=== PATIENT | male | born 1970 | race Caucasian/White ===

== ENCOUNTER 2022-05-02 13:21 | Inpatient (IN) ==
[2022-05-02] MEDS ORDERED: VANCOMYCIN HCL 2,250 MG in SODIUM CHLORIDE 0.9% 500 ML IV STA (14:18)
[2022-05-02] MEDS ORDERED: CEFEPIME 2,000 MG/20 ML VIAL IV STA (14:18)
[2022-05-02] MEDS ORDERED: VANCOMYCIN CONSULT ACTIVE PRN (14:18)
--- NOTE | 2022-05-02 14:23 | Emergency Department Note ---
Impression & Plan Cellulitis, Anemia, Failure of outpatient treatment, Creatinine elevation ED Provider Note NAME: PEYTON MONTILLA AGE: 51 SEX: M : 1970 ARRIVES VIA: Walk-In INFORMANT: [Patient] ED PROVIDER(S): [Shiv Roa MD] CHIEF COMPLAINT: Infection HISTORY OF PRESENT ILLNESS: The patient is a 51-year-old male who has a history of a left lower extremity compartment syndrome as well as fracture. He states that 3 days ago, he noticed redness and swelling and went to an ER in [facility]. They opened the wound and drained some puslike material. He was placed on antibiotics (Keflex). He is visiting here in [place]. The patient states that he has been taking his antibiotics as prescribed however, the leg has become more erythematous and more swollen. He has not had fever. He has minimal pain. No cough or congestion or shortness of breath. No urinary complaints. He has never had an infection in this leg before. No real pain in the left knee or leg. He has been walking on this extremity. REVIEW OF SYSTEMS: See HPI for pertinent positives and negatives. A total of ten systems were reviewed and were otherwise negative. PMHx/PSHx: See Below SOCIAL HISTORY: See Below. PHYSICAL EXAM: GENERAL: Patient is in no acute distress. HEENT: No acute trauma, normocephalic atraumatic, mucous membranes moist, no nasal congestion, no scleral icterus. NECK: No stridor, no adenopathy, no meningismus, trachea is midline. LUNGS: Clear to auscultation bilaterally, no wheeze, no rhonchi, breath sounds equal. HEART: Without murmurs gallops or rubs, regular rate and rhythm. ABDOMEN: Soft, nontender, bowel sounds positive, no peritonitis. EXTREMITIES: No cyanosis. Significant swelling/edema of the left lower extremity from the knee to the ankle. There is erythema extending above the knee and to the ankle. There is an open area with packing in place along the proximal lateral portion of the tib-fib. No active drainage. NEUROLOGIC: Oriented x 3, no acute motor or sensory deficits, no focal weakness. SKIN: No jaundice, no diaphoresis. DIFFERENTIAL DIAGNOSIS: Sepsis, abscess, necrotizing fasciitis, UTI, pneumonia, metabolic abnormality, electrolyte abnormalities, cardiac sources, cellulitis, bacteremia, intracerebral event, toxicologic etiology, neurologic event, as well as other pathologies. EMERGENCY DEPARTMENT COURSE/PROCEDURES: ECG: Indication was possible sepsis. The ECG shows a normal sinus rhythm with a rate of 78. LVH is present. There is no ST elevation, no PVCs but the QTc is 424. Continuous Cardiac Monitoring: An order was placed for continuous cardiac monitoring. The monitor shows a rate of 84 with normal sinus rhythm. MEDICAL DECISION MAKING: There is no leukocytosis. The patient is anemic--we have no old values to use for comparison. The patient has not had black or bloody stool. The patient has no history of GI bleeding. Platelet count was 185, normal. No concerning coagulopathy. Renal panel testing does show an elevation to the creatinine, the patient has no knowledge of his previous creatinine values. We have no values here to use for comparison. Lactic acid level was not elevated making severe sepsis less likely. There was no concerning liver enzyme elevation. Procalcitonin level was elevated consistent with bacterial infection. Left lower extremity CT does show cellulitis, no evidence for necrotizing fasciitis. Our receptionist secretary did attempt to obtain information from the patient's medical facility in [facility], they were unable to provide any information as it was the weekend. I do think the patient requires a hospital stay. He has worsening infection despite antibiotic therapy. The patient was given IV saline, IV cefepime and IV vancomycin. The patient is currently doing well. Hospitalization is warranted though. I spoke with the patient at length, I spoke with case management, the on-call hospitalist was consulted. Past Med/Surg History Medical History Cellulitis Compartment syndrome Social History Smoking Status: Never smoker Preferred Language: [place] Korean Feels Safe at Home: Yes Results & Data (ED) Vital Signs Vital Signs - 24 hr 05/02/22 13:22 05/02/22 15:07 05/02/22 18:29 Temperature 37.0 C Temperature Source Oral Pulse Rate 91 H Pulse Rate [Finger] 84 86 Respiratory Rate 16 18 16 Respiratory Effort / Characteristics Non-Labored Respiratory Depth Normal Blood Pressure 149/92 H Blood Pressure [Right Arm] 119/75 175/95 H Blood Pressure Mean 111 Blood Pressure Mean [Right Arm] 89 121 Pulse Oximetry 98 97 97 Oxygen Delivery Method Room Air Room Air Sepsis Recent Fever Within 48 Hours No Sepsis New/Unexplained Change in Mental Status No Sepsis Action Taken by Nursing No Action Required Home Medications Current Medication List: was personally reviewed by me Laboratory Data Attestation: I reviewed the patient's lab results. Result diagrams: 05/02/22 13:45 05/02/22 13:45 Lab Results 05/02/22 05/02/22 05/02/22 Range/Units 13:45 13:45 13:45 WBC 9.35 (4.8-10.8) K/ul RBC 4.54 L (4.63-6.08) M/uL Hgb 9.9 L (14.0-18.0) g/dl Hct 32.9 L (40.1-51.0) % MCV 72.5 L (80.0-100.0) fL MCH 21.8 L (25.0-34.0) pg MCHC 30.1 L (32.0-36.0) g/dL RDW Std Deviation 48.1 H (36.4-46.3) fL RDW Coeff of Dalton 18.5 H (11.5-14.5) % Plt Count 185 (130-400) K/uL MPV 11.2 (9.4-12.4) fL Immature Gran % (Auto) 0.6 % Neut % (Auto) 77.4 % Lymph % (Auto) 10.6 % Orange % (Auto) 9.5 % Eos % (Auto) 1.7 % Baso % (Auto) 0.2 % Neut # (Auto) 7.23 H (1.4-6.5) K/uL Lymph # (Auto) 0.99 L (1.2-3.4) K/uL Orange # (Auto) 0.89 H (0.24-0.82) K/uL Eos # (Auto) 0.16 (0-0.50) K/uL Baso # (Auto) 0.02 (0-0.2) K/uL Immature Gran # (Auto) 0.06 H (0.00-0.02) K/uL Dohle Bodies 1+ Echinocytes 1+ PT 11.5 (9.0-12.0) Seconds INR 1.1 (0.9-1.1) APTT 35.1 H (21.0-31.0) Seconds PTT Ratio 1.3 Sodium 137 (136-145) mmol/L Potassium 3.5 (3.5-5.1) mmol/L Chloride 103 (98-107) mmol/L Carbon Dioxide 21 (21-32) mmol/L Anion Gap 13 H (3-11) BUN 55 H (6-23) mg/dl Creatinine 2.70 H (0.6-1.4) mg/dl Est Cr Clr Drug Dosing 36.4 ml/min Est GFR ( Amer) 29.8 ml/min Est GFR (Non-Af Amer) 25.7 ml/min BUN/Creatinine Ratio 20.4 H (10-20) Glucose 103 H (70-99(Fasting)) mg/dl Lactate (0.4-2.0) mmol/L Calcium 9.7 (8.5-10.1) mg/dl Magnesium 2.2 (1.7-2.4) mg/dl Total Bilirubin 0.5 (0.2-1.0) mg/dl AST 32 (13-39) U/L ALT 35 (7-52) U/L Alkaline Phosphatase 95 (34-104) U/L Total Protein 7.8 (6.0-8.3) gm/dl Albumin 4.1 (3.4-5.0) gm/dl Globulin 3.7 (2.5-4.0) gm/dl Albumin/Globulin Ratio 1.1 (0.9-2) Procalcitonin (0-0.5) ng/ml 05/02/22 05/02/22 Range/Units 13:45 14:41 WBC (4.8-10.8) K/ul RBC (4.63-6.08) M/uL Hgb (14.0-18.0) g/dl Hct (40.1-51.0) % MCV (80.0-100.0) fL MCH (25.0-34.0) pg MCHC (32.0-36.0) g/dL RDW Std Deviation (36.4-46.3) fL RDW Coeff of Dalton (11.5-14.5) % Plt Count (130-400) K/uL MPV (9.4-12.4) fL Immature Gran % (Auto) % Neut % (Auto) % Lymph % (Auto) % Orange % (Auto) % Eos % (Auto) % Baso % (Auto) % Neut # (Auto) (1.4-6.5) K/uL Lymph # (Auto) (1.2-3.4) K/uL Orange # (Auto) (0.24-0.82) K/uL Eos # (Auto) (0-0.50) K/uL Baso # (Auto) (0-0.2) K/uL Immature Gran # (Auto) (0.00-0.02) K/uL Dohle Bodies Echinocytes PT (9.0-12.0) Seconds INR (0.9-1.1) APTT (21.0-31.0) Seconds PTT Ratio Sodium (136-145) mmol/L Potassium (3.5-5.1) mmol/L Chloride (98-107) mmol/L Carbon Dioxide (21-32) mmol/L Anion Gap (3-11) BUN (6-23) mg/dl Creatinine (0.6-1.4) mg/dl Est Cr Clr Drug Dosing ml/min Est GFR ( Amer) ml/min Est GFR (Non-Af Amer) ml/min BUN/Creatinine Ratio (10-20) Glucose (70-99(Fasting)) mg/dl Lactate 0.9 (0.4-2.0) mmol/L Calcium (8.5-10.1) mg/dl Magnesium (1.7-2.4) mg/dl Total Bilirubin (0.2-1.0) mg/dl AST (13-39) U/L ALT (7-52) U/L Alkaline Phosphatase (34-104) U/L Total Protein (6.0-8.3) gm/dl Albumin (3.4-5.0) gm/dl Globulin (2.5-4.0) gm/dl Albumin/Globulin Ratio (0.9-2) Procalcitonin 3.59 H (0-0.5) ng/ml Administered Medications Discontinued Medications Vancomycin HCl 2,250 mg/ (Sodium Chloride) 545 mls @ 200 mls/hr IV NOW STA Stop: 05/02/22 17:01 Last Admin: 05/02/22 16:16 Dose: 200 mls/hr Documented By: ROBE Sodium Chloride (Nss 1000ml) 1,000 mls @ 999 mls/hr IV .Q1H1M ANGELA Stop: 05/02/22 15:30 Last Infusion: 05/02/22 16:16 Dose: 0 mls/hr Documented By: Admin: 05/02/22 15:08 Dose: 999 mls/hr Documented By: ROBE Cefepime HCl (Maxipime) 2,000 mg in 20 mls @ 5 mls/min IV NOW STA; Protocol Stop: 05/02/22 14:21 Last Admin: 05/02/22 15:08 Dose: 5 mls/min Documented By: ROBE Imaging Data Radiologist's Impression: Lower Extremity CT 05/02/22 15:41 CT tib/fib LT wo con CLINICAL HISTORY: Possible abscess, elevated creatinine. Recent incision and drainage. COMPARISON STUDY: No previous studies for comparison. TECHNIQUE: Axial images of the left tibia and fibula were obtained without IV contrast. Sagittal and coronal reconstructions were viewed. Automated exposure control was utilized for the study. A dose lowering technique was utilized adhering to the principles of ALARA. FINDINGS: A proximal left tibial plate and screw fixation is noted. There is an incompletely healed proximal left tibial fracture which involves the medial and lateral tibial plateaus. Evaluation is suboptimal given streak artifact from the hardware. Lateral tibial plateau is depressed approximately 6 mm. Hardware is intact. There is an incompletely healed proximal left fibular fracture as well. Visualized skeletal structures are heterogeneous with numerous lucent foci. The findings suggest disuse osteopenia. A left knee joint effusion is partially imaged. This is at least moderate in size. There is suspected synovial thickening. There is extensive subcutaneous edema of the left knee and lower leg. A few locules of subcutaneous gas of the lateral left knee are likely related to recent incision and drainage. The largest locule measures 1.2 cm. This may have a small amount of associated fluid. However, no drainable fluid collection is noted. No additional fractures are identified. IMPRESSION: 1. Status post internal fixation of a proximal left tibial fracture with plate and screws. Fracture incompletely healed. Fracture involves medial and lateral tibial plateaus. Lateral tibial plateau depressed approximately 6 mm. Incompletely healed proximal fibular fracture. 2. Partially visualized left knee joint effusion, likely moderate in size. Synovial thickening. Sterility cannot be assessed by CT. 3. Several subcutaneous locules of gas of the lateral left knee likely related to recent incision and drainage. No drainable residual fluid collection. 4. Extensive subcutaneous edema of the left knee and leg. This favors cellulitis. 5. Findings suggestive of disuse osteopenia. ACT 112: Negative or not required by law. Electronically signed by: Bruce Marley M.D. 05/02/2022 5:40 PM Discharge Plan Visit Data Chief Complaint: Infection Stated Complaint: LEG INFECTION ED Provider: Shiv Roa Discharge Problem: Cellulitis, Anemia, Failure of outpatient treatment, Creatinine elevation Patient Disposition: Admitted As Inpatient Condition: Fair Forms Stand Alone Forms: [facility] Referrals Referrals: PCP,NO [Primary Care Provider] -
[2022-05-02] MEDS ORDERED: SODIUM CHLORIDE 0.9% 1000ML 1,000 ML IV SCH (14:30)
[2022-05-02 14:43] LABS: Hematocrit (blood only) 32.9 % (40.1-51.0); Hemoglobin 9.9 g/dl (14.0-18.0); Mean Corpuscular Hemoglobin 21.8 pg (25.0-34.0); Mean Corpuscular Hgb Conc 30.1 g/dL (32.0-36.0); Mean Corpuscular Volume 72.5 fL (80.0-100.0); RDW Coefficient of Variation 18.5 % (11.5-14.5); RDW Standard Deviation 48.1 fL (36.4-46.3); Red Blood Count 4.54 M/uL (4.63-6.08); White Blood Count 9.35 K/ul (4.8-10.8)
[2022-05-02 14:46] LABS: Mean Platelet Volume 11.2 fL (9.4-12.4); Platelet Count 185 K/uL (130-400)
[2022-05-02 14:54] LABS: Albumin Globulin Ratio 1.1 (0.9-2); Albumin Level 4.1 gm/dl (3.4-5.0); BUN Creatinine Ratio 20.4 (10-20); Bilirubin,Total 0.5 mg/dl (0.2-1.0); Calcium 9.7 mg/dl (8.5-10.1); Creatinine Clr Calc Pharmacy 36.4 ml/min; Est GFR (African American) 29.8 ml/min; Est GFR (Non-African American) 25.7 ml/min; Globulin 3.7 gm/dl (2.5-4.0); Magnesium 2.2 mg/dl (1.7-2.4); Potassium 3.5 mmol/L (3.5-5.1); Total Protein 7.8 gm/dl (6.0-8.3)
[2022-05-02 14:56] LABS: INR 1.1 (0.9-1.1); Partial Thromboplastin Ratio 1.3; Partial Thromboplastin Time 35.1 Seconds (21.0-31.0); Prothrombin Time 11.5 Seconds (9.0-12.0)
[2022-05-02 15:02] LABS: Basophils # (auto) 0.02 K/uL (0-0.2); Basophils % (auto) 0.2 %; Dohle Bodies 1+; Echinocytes 1+; Eosinophils # (auto) 0.16 K/uL (0-0.50); Eosinophils % (auto) 1.7 %; Immature Granulocytes # (auto) 0.06 K/uL (0.00-0.02); Immature Granulocytes % (auto) 0.6 %; Lymphocytes # (auto) 0.99 K/uL (1.2-3.4); Lymphocytes % (auto) 10.6 %; Monocytes # (auto) 0.89 K/uL (0.24-0.82); Monocytes % (auto) 9.5 %; Neutrophils # (auto) 7.23 K/uL (1.4-6.5); Neutrophils % (auto) 77.4 %
--- NOTE | 2022-05-02 17:43 | CT Scan Report ---
CT tib/fib LT wo con CLINICAL HISTORY: Possible abscess, elevated creatinine. Recent incision and drainage. COMPARISON STUDY: No previous studies for comparison. TECHNIQUE: Axial images of the left tibia and fibula were obtained without IV contrast. Sagittal and coronal reconstructions were viewed. Automated exposure control was utilized for the study. A dose l owering technique was utilized adhering to the principles of ALARA. FINDINGS: A proximal left tibial plate and screw fixation is noted. There is an incompletely healed p roximal left tibial fracture which involves the medial and lateral tibial plateaus. Evaluation is sub optimal given streak artifact from the hardware. Lateral tibial plateau is depressed approximately 6 mm. Hardware is intact. There is an incompletely healed proximal left fibular fracture as well. Visua lized skeletal structures are heterogeneous with numerous lucent foci. The findings suggest disuse os teopenia. A left knee joint effusion is partially imaged. This is at least moderate in size. There is suspected synovial thickening. There is extensive subcutaneous edema of the left knee and lower leg. A few locules of subcutaneous gas of the lateral left knee are likely related to recent incision and drainage. The largest locule measures 1.2 cm. This may have a small amount of associated fluid. [place], no drainable fluid collection is noted. No additional fractures are identified. IMPRESSION: 1. Status post internal fixation of a proximal left tibial fracture with plate and screws. Fracture i ncompletely healed. Fracture involves medial and lateral tibial plateaus. Lateral tibial plateau depr essed approximately 6 mm. Incompletely healed proximal fibular fracture. 2. Partially visualized left knee joint effusion, likely moderate in size. Synovial thickening. Steri lity cannot be assessed by CT. 3. Several subcutaneous locules of gas of the lateral left knee likely related to recent incision and drainage. No drainable residual fluid collection. 4. Extensive subcutaneous edema of the left knee and leg. This favors cellulitis. 5. Findings suggestive of disuse osteopenia. ACT 112: Negative or not required by law. Electronically signed by: Bruce Marley M.D. 05/02/2022 5:40 PM
--- NOTE | 2022-05-02 19:17 | History & Physical Report ---
Date of Service May 02, 2022 Assessment & Plan (1) Cellulitis: Plan: Failed outpatient Keflex. After reviewing images and clinical exam, I do not think the knee is involved, so I think it is ok to keep him here. - Follow blood cultures - Ordered abscess culture - Doppler on LLE ordered - extension division director consult - Dapto/Zosyn until cultures return - Orthopedics consulted (2) Tibial plateau fracture, left: Plan: On 12/07/2021 when falling from a ladder. As above, do not believe joint is involved based on exam and imaging. - Orthopedics consult just to be sure and to see if they feel any further I&D would be warranted. (3) Creatinine elevation: Plan: Patient does not have any knowledge of prior kidney issues, so presumed acute renal failure. - UA ordered - IV fluids - Bladder scans to r/o obstructive cause - If not improvement in next 1-2 days, consider nephrology c/s (4) Anemia: Plan: Microcytic, presumed to be iron deficiency from surgeries. Patient does not know of this, however. No indication of acute bleeding. - Anemia panel - Monitor - Consider IV Venofer when infection controlled (5) Migraine: Plan: Take sumatriptan at home. - Sumatriptan PRN (6) DVT prophylaxis: Plan: Heparin 5,000 units SQ Q12h History of Present Illness Primary Care Provider: NO PCP 51yo M w/ hx of migraines who presents with left leg cellulitis. The patient fell off a ladder on 12/07/2021. He went straight the hospital, and was diagnosed with a tibial plateau fracture. His case was complicated by compartment syndrome of the wells, and he required a fasciotomy. Overall, he required 4 surgeries to repair the leg and had his final surgery to stabilize and repair the bone on 12/29/2021. Unfortunately, at some point, he scraped at some scabbing on the lateral side of the leg, and he opened up a blister. He has been using gauze and bandages on the leg to help it heal. He was in [place] when he noted some redness and swelling on the leg. There, he had an I&D performed at a hospital, and they prescribed him Keflex. He has been taking that as prescribed. However, today, one of his coworkers noted that he had blood staining through his pant. Someone in the stadium packed the wound, and he was sent here for further care. He reports he has not had any systemic symptoms overall. He notes his leg is swollen, but no pain. Has had very limited ROM with the left knee since his surgeries, but this has not changed. Home Medications Medication Instructions Recorded Confirmed Type sumatriptan 05/02/22 History Past Med/Surg History Medical History Cellulitis Compartment syndrome Migraine Tibial plateau fracture, left Social History Smoking Status: Never smoker Preferred Language: Venezuelan Feels Safe at Home: Yes Review of Systems Review of Systems: All systems reviewed & are unremarkable except as noted in HPI & below Physical Exam Constitutional: WD/WN, vitals as above Eyes: EOM intact bilaterally; no conjunctival abnormality ENMT: external ear and nose normal, oropharynx normal Neck: trachea midline, no thyromegaly normal visual inspection Respiratory: normal respiratory effort, lungs clear to auscultation no respiratory distress Cardiovascular: RRR, no murmur, no edema Gastrointestinal (Abdomen): Inspection/Auscultation: abdomen normal to inspection; abdomen not distended Musculoskeletal: Extremities: + limited ROM of extremities (Left knee with minimal range of motion); + extremities abnormal to inspection Skin: no rashes, warm and dry Neurologic: moves all extremities and awake Psychiatric: Orientation: alert, oriented to person and cooperative Results & Data Results & Data ([facility]) Vital Signs (Past 12 Hours) Vital Signs Temp Pulse Pulse Resp BP BP Pulse Ox 05/02/22 18:29 86 16 175/95 H 97 05/02/22 15:07 84 18 119/75 97 05/02/22 13:22 37.0 C 91 H 16 149/92 H 98 O2 Del Method 05/02/22 18:29 Room Air 05/02/22 15:07 Room Air 05/02/22 13:22 Code Status & VTE Plan VTE Prophylaxis Plan VTE Prophylaxis will be ordered: Yes PG Care Time/CCT Total # of Minutes Spent Total Time Spent with Patient: Total time spent is greater than 50% in coordination of care (as documented) at patient's floor/unit and/or counseling patient: Coding Level of Care Code 54287 Initial Inpt Care Lvl 3 Diagnoses Cellulitis L03.116 Laterality: left Site of cellulitis: extremity Site of cellulitis of extremity: lower extremity Tibial plateau fracture, left S82.142A Creatinine elevation R79.89 Anemia D64.9 Anemia type: unspecified type Migraine G43.909 DVT prophylaxis Z29.9 (1) Cellulitis Laterality: left Site of cellulitis: extremity Site of cellulitis of extremity: lower extremity Qualified Code(s): L03.116 - Cellulitis of left lower limb (2) Anemia Anemia type: unspecified type Qualified Code(s): D64.9 - Anemia, unspecified
[2022-05-02] MEDS ORDERED: ONDANSETRON INJ 2 MG/ML 2 ML VIAL IV PRN (21:37)
[2022-05-02] MEDS: HEPARIN SOD 5,000 UNIT/0.5 ML VIAL SQ SCH (21:51)
[2022-05-02] MEDS ORDERED: PIPERACILLIN/TAZOBACTAM 3.375 GM in DEXTROSE 5% 100 ML IV ONE (22:00)
[2022-05-02 22:16] LABS: Appearance Urine Clear (Clear); Bacteria Urine Automated Negative (Negative); Bilirubin Urine Negative (Negative); Blood Urine 1+ (Negative); Color Urine Yellow; Epithelial Cell Urine Auto >30 /lpf (0-5); Glucose Urine UA Negative (Negative); Ketones Urine Negative (Negative); Leukocyte Esterase Urine Negative (Negative); Nitrite Urine Negative (Negative); Protein Urine 2+ (Negative); Specific Gravity Urine 1.019 (1.000-1.030); Urobilinogen Urine Negative (Negative); pH Urine 5.5 (4.5-7.5)
[2022-05-02] MEDS: LACTATED RINGER'S 1,000 ML IV SCH (22:16)
[2022-05-02] MEDS ORDERED: IBUPROFEN 600 MG TAB PO PRN (22:41)
[2022-05-03] MEDS: DAPTOmycin 325 MG in SYRINGE 0 ML IV SCH (02:58)
[2022-05-03] MEDS: PIPERACILLIN/TAZOBACTAM 3.375 GM in DEXTROSE 5% 100 ML IV SCH ×3 (03:02→19:24)
[2022-05-03 08:10] LABS: Hematocrit (blood only) 27.5 % (40.1-51.0); Hemoglobin 8.4 g/dl (14.0-18.0); Mean Corpuscular Hemoglobin 21.6 pg (25.0-34.0); Mean Corpuscular Hgb Conc 30.5 g/dL (32.0-36.0); Mean Corpuscular Volume 70.7 fL (80.0-100.0); Mean Platelet Volume 9.8 fL (9.4-12.4); Platelet Count 161 K/uL (130-400); RDW Coefficient of Variation 18.4 % (11.5-14.5); RDW Standard Deviation 46.6 fL (36.4-46.3); Red Blood Count 3.89 M/uL (4.63-6.08); White Blood Count 8.32 K/ul (4.8-10.8)
--- NOTE | 2022-05-03 08:23 | Ultrasound Report ---
LEFT LOWER EXTREMITY VENOUS DOPPLER CLINICAL HISTORY: Severe LE swelling; immobility COMPARISON STUDY: No previous studies for comparison. TECHNIQUE: Sonography of the deep venous system of the left lower extremity was performed. Compressi on and augmentation were evaluated. FINDINGS: The left common femoral, superficial femoral and popliteal veins were compressible. Augmen tation was normal. Flow was shown within the deep calf vessels although the calf vessels were difficu lt to assess. Prominent left inguinal lymph nodes have benign imaging characteristics. Extensive left calf edema is noted.. IMPRESSION: 1. No evidence of deep venous thrombus within the left lower extremity although left calf vessels sub optimally assessed. 2. Extensive left calf fluid. This may reflect cellulitis or edema. ACT 112: Negative or not required by law. Electronically signed by: Bruce Marley M.D. 05/03/2022 8:22 AM
[2022-05-03 08:51] LABS: Anion Gap 10 (3-11); BUN Creatinine Ratio 22.7 (10-20); Blood Urea Nitrogen 29 mg/dl (6-23); Calcium 8.6 mg/dl (8.5-10.1); Carbon Dioxide 22 mmol/L (21-32); Chloride 106 mmol/L (98-107); Creatinine Clr Calc Pharmacy 76.4 ml/min; Est GFR (African American) 73.6 ml/min; Est GFR (Non-African American) 63.5 ml/min; Glucose 88 mg/dl (70-99(Fasting)); Iron < 10 mcg/dl (35-175); Magnesium 1.8 mg/dl (1.7-2.4); Potassium 3.3 mmol/L (3.5-5.1); Sodium 138 mmol/L (136-145); Transferrin 186 mg/dl (200-360); Unsaturated Iron Binding Cap 239 mcg/dl (155-355)
[2022-05-03 09:00] LABS: Folate (Folic Acid) 17.46 ng/ml (>5.38)
[2022-05-03 09:24] LABS: Ferritin 112.1 ng/ml (8-388)
[2022-05-03] MEDS: HEPARIN SOD 5,000 UNIT/0.5 ML VIAL SQ SCH ×2 (10:26→22:26)
[2022-05-03] MEDS: LACTATED RINGER'S 1,000 ML IV SCH ×2 (10:26→22:21)
--- NOTE | 2022-05-03 14:59 | Electrocardiogram Report ---
Test Reason : Blood Pressure : / mmHG Vent. Rate : 078 BPM Atrial Rate : 078 BPM P-R Int : 134 ms QRS Dur : 098 ms QT Int : 372 ms P-R-T Axes : 062 003 027 degrees QTc Int : 424 ms Normal sinus rhythm Possible Left atrial enlargement Left ventricular hypertrophy Abnormal ECG No previous ECGs available Confirmed by Catarino Joshi ([id number]) on 05/03/2022 2:58:47 PM Referred By: REFERRED SELF Confirmed By:Catarino Joshi
--- NOTE | 2022-05-03 15:35 | Orthopedic Consultation ---
Date of Service May 03, 2022 Assessment & Plan (1) Infected hardware in left leg: Unfortunately unable to easily express gross pus from the wound. I feel this is treated better in the operating room with formal irrigation and debridement of the area. I do not see any signs of septic arthritis in the knee joint. He is not having much pain in the knee. After the irrigation debridement I will likely apply a VAC sponge. He will then likely require IV antibiotics and can be sent back to [place]. I went over the procedure with him in detail. He had just eaten today so I think this can be safely done tomorrow. He understands the risk, benefits, alternatives procedure elected proceed question were a nswered at bedside. Time was spent describing the procedure and post expectations. He will be n.p.o. past midnight tonight. History of Present Illness Reason for Consultation: Left leg infection. Requesting Physician: . Attending Physician: Jon Junior is a pleasant 51-year-old male who lives in [place]. He was in [place] [employer] the [employer] game. He has a history of an open reduction internal fixation of his right tibial plateau about 6 months ago. He required a fasciotomy at the time as well. Once the soft tissues had calmed down he underwent the fixation. He has been dealing with some cellulitis to the area on and off. The wounds were slowly closing. While at the [employer] game one of the wounds opened up. He came to the emergency room and was diagnosed with cell ulitis and infection around the left proximal tibia. CT scan showed a small abscess area but nothing too significant. The hardware is intact with the fracture is not yet healed. He has been admitted to the medical service and is on IV antibiotics. Orthopedics was consulted to evaluate and treat.. Allergies Allergy/AdvReac Type Severity Reaction Status Date / Time No Known Allergies Allergy Unverified 05/02/22 19:45 Home Medications Medication Instructions Recorded Confirmed Type cephalexin 500 mg capsule 500 mg PO TID 05/02/22 05/02/22 History glucosamine sulf dipot 2 cap PO DAILY 05/02/22 05/02/22 History chlr,msm,chond 550 mg-C 30 mg-chelle 1 mg capsule (Glucosamine Chondroitin) hydrocodone 5 mg-acetaminophen 325 1 tab PO Q6H PRN Pain 05/02/22 05/02/22 History mg tablet ibuprofen 200 mg tablet 600 mg PO Q6H PRN Pain 05/02/22 05/02/22 History sumatriptan succinate 50 mg tablet 0 mg PO .COMPLEX 05/02/22 05/02/22 History Past Med/Surg History Medical History Cellulitis Compartment syndrome Migraine Tibial plateau fracture, left Social History Smoking Status: Never smoker Second Hand Exposure: No; Hx Alcohol Use: Yes Alcohol type: beer and hard liquor Hx Substance Use: No Preferred Language: Azerbaijani Communication Ability: Effective Press Department Manager Required: No Beliefs That Will Affect Care: None Current Living Situation: Spouse and Family Current Living Situation Comment: Lives w/ spouse and family Feels Safe at Home: Yes Assistive Devices: Cane and Glasses Review of Systems All systems reviewed & are unremarkable except as noted in HPI & below. Physical Exam On physical examination of the left leg, there is cellulitis extends from the knee down to the ankle. There is a 1 cm opening around the proximal tibia with purulent discharge easily expressed from it.. Constitutional WD/WN, vitals as above Eyes PERRL, conjunctivae normal, anicteric sclerae ENMT external ear and nose normal, oropharynx normal Neck trachea midline, no thyromegaly Respiratory normal respiratory effort, lungs clear to auscultation Cardiovascular RRR, no murmur, no edema Gastrointestinal (Abdomen) normal bowel sounds, soft, nontender, no hepatosplenomegaly Skin no rashes, warm and dry Psychiatric A+Ox3, euthymic affect Results & Data Results & Data Laboratory Results . Diagnostic Findings CT scan of the left leg shows the hardware to be in good alignment. The fracture is not completely healed. There is no discernible drainable area.. PG Care Time/CCT Total # of Minutes Spent Total Time Spent with Patient: Total time spent is greater than 50% in coordination of care (as documented) at patient's floor/unit and/or counseling patient: Coding Level of Care Code 70919 Inpt Consult Level 4 (57 - DECISION FOR SURGERY) Diagnoses Infected hardware in left leg T84.7XXA
[2022-05-03] MEDS: ACETAMINOPHEN 325 MG TAB PO PRN ×2 (15:59→22:25)
[2022-05-03] MEDS: SUMAtriptan succinate 50 MG TAB PO PRN (17:52)
--- NOTE | 2022-05-03 22:18 | Hospitalist Progress Note ---
Date of Service May 03, 2022 Assessment & Plan (1) Cellulitis: Plan: Failed outpatient Keflex. After reviewing images and clinical exam, I do not think the knee is involved, so I think it is ok to keep him here. - Follow blood cultures - Ordered abscess culture - Doppler on LLE ordered - broth setter consult - Dapto/Zosyn until cultures return - Orthopedics consulted Plan for debridement and irrigation tomorrow. (2) Tibial plateau fracture, left: Plan: On 12/07/2021 when falling from a ladder. As above, do not believe joint is involved based on exam and imaging. - Orthopedics consult just to be sure and to see if they feel any further I&D would be warranted. (3) Creatinine elevation: Plan: Patient does not have any knowledge of prior kidney issues, so presumed acute renal failure. - UA ordered - IV fluids - Bladder scans to r/o obstructive cause - If not improvement in next 1-2 days, consider nephrology c/s (4) Anemia: Plan: Microcytic, presumed to be iron deficiency from surgeries. Patient does not know of this, however. No indication of acute bleeding. - Anemia panel - Monitor - Consider IV Venofer when infection controlled. -will likely not order iron in the short term. (5) Migraine: Plan: Take sumatriptan at home. - Sumatriptan PRN (6) DVT prophylaxis: Plan: Heparin 5,000 units SQ Q12h Admission and Anticipated Discharge Date Admission Date: May 02, 2022 Subjective 51 yo male reports no new symptoms. He is concerned about his blood count and would like for it to be investigated. Review of Systems Review of Systems: All systems reviewed & are unremarkable except as noted in HPI & below Physical Exam Physical Exam: Constitutional: WD/WN, vitals as above Eyes: no conjunctival abnormality ENMT: external ear and nose normal Neck: normal visual inspection Respiratory: normal respiratory effort, no respiratory distress Cardiovascular: RRR, no murmur, no edema Musculoskeletal: Extremities: + limited ROM of extremities (Left knee with minimal range of motion); + extremities abnormal to inspection Skin: no rashes, warm and dry Neurologic: moves all extremities and awake Psychiatric: Orientation: alert, oriented to person and cooperative Results & Data Results & Data ([facility]) Vital Signs (Past 12 Hours) Vital Signs Temp Pulse Pulse Resp BP Pulse Ox O2 Del Method 05/03/22 16:00 95 H 05/03/22 16:02 37.7 C H 97 H 18 141/83 H 98 Room Air PG Care Time/CCT Total # of Minutes Spent Total Time Spent with Patient: Total time spent is greater than 50% in coordination of care (as documented) at patient's floor/unit and/or counseling patient: Coding Level of Care Code 39232 Subseq Hosp Care Lvl 2 Diagnoses Cellulitis L03.116 Laterality: left Site of cellulitis: extremity Site of cellulitis of extremity: lower extremity Tibial plateau fracture, left S82.142A Creatinine elevation R79.89 Anemia D64.9 Anemia type: unspecified type Migraine G43.909 DVT prophylaxis Z29.9 Time Spent (min) 25 (1) Anemia Anemia type: unspecified type Qualified Code(s): D64.9 - Anemia, unspecified (2) Cellulitis Laterality: left Site of cellulitis: extremity Site of cellulitis of extremity: lower extremity Qualified Code(s): L03.116 - Cellulitis of left lower limb
[2022-05-04] MEDS: DAPTOmycin 325 MG in SYRINGE 0 ML IV SCH (02:58)
[2022-05-04] MEDS: PIPERACILLIN/TAZOBACTAM 3.375 GM in DEXTROSE 5% 100 ML IV SCH ×3 (03:02→19:42)
[2022-05-04] MEDS: ACETAMINOPHEN 325 MG TAB PO PRN (07:44)
[2022-05-04 08:50] LABS: Hematocrit (blood only) 26.4 % (40.1-51.0); Hemoglobin 8.1 g/dl (14.0-18.0); Mean Corpuscular Hemoglobin 21.6 pg (25.0-34.0); Mean Corpuscular Hgb Conc 30.7 g/dL (32.0-36.0); Mean Corpuscular Volume 70.4 fL (80.0-100.0); Mean Platelet Volume 10.7 fL (9.4-12.4); Platelet Count 191 K/uL (130-400); RDW Coefficient of Variation 18.6 % (11.5-14.5); RDW Standard Deviation 47.3 fL (36.4-46.3); Red Blood Count 3.75 M/uL (4.63-6.08); White Blood Count 8.21 K/ul (4.8-10.8)
[2022-05-04 09:18] LABS: BUN Creatinine Ratio 19.2 (10-20); Calcium 8.7 mg/dl (8.5-10.1); Creatinine Clr Calc Pharmacy 98.8 ml/min; Est GFR (African American) 100.4 ml/min; Est GFR (Non-African American) 86.6 ml/min; Potassium 3.4 mmol/L (3.5-5.1)
[2022-05-04] MEDS: HEPARIN SOD 5,000 UNIT/0.5 ML VIAL SQ SCH ×2 (09:52→21:17)
[2022-05-04] MEDS: SUMAtriptan succinate 50 MG TAB PO PRN (10:08)
[2022-05-04] MEDS: LACTATED RINGER'S 1,000 ML IV SCH ×2 (10:59→22:54)
[2022-05-04] MEDS ORDERED: LIDOCAINE 2% MPF LOCAL 5 ML VIAL INFIL ONE (12:40)
[2022-05-04] MEDS ORDERED: fentaNYL citrate 100 MCG/2 ML VIAL ONE ×2 (12:40→16:09)
[2022-05-04] MEDS ORDERED: ePHEDrine sulfate 50 MG/ML SYR ONE (12:40)
[2022-05-04] MEDS ORDERED: ONDANSETRON INJ 2 MG/ML 2 ML VIAL ONE (12:40)
[2022-05-04] MEDS ORDERED: PROPOFOL IV EMULSION 10 MG/ML 20 ML VIAL IV ONE (12:40)
[2022-05-04] MEDS ORDERED: MIDAZOLAM HCL 1 MG/ML 2ML VIAL ONE (12:40)
[2022-05-04] MEDS ORDERED: DEXAMETHASONE SOD INJ 4 MG/ML VIAL ONE (12:40)
--- NOTE | 2022-05-04 13:47 | History & Physical Bridge Note ---
Date of Service May 04, 2022 History & Physical Bridge Note I have examined the patient, reviewed the History & Physical and in the interval since the performance of the History & Physical I have noted the following changes of clinical significance: no changes noted
[2022-05-04] MEDS ORDERED: ATROPINE SULFATE 0.1 MG/ML 10ML SYR IV PRN (15:29)
[2022-05-04] MEDS ORDERED: ePHEDrine sulfate 50 MG/ML AMP IV PRN (15:29)
[2022-05-04] MEDS ORDERED: fentaNYL citrate 100 MCG/2 ML VIAL IV PRN (15:29)
[2022-05-04] MEDS ORDERED: ONDANSETRON INJ 2 MG/ML 2 ML VIAL IV PRN (15:29)
--- NOTE | 2022-05-04 15:29 | Anesthesiology Consultation ---
Date of Service May 04, 2022 Assessment & Plan Chart Review Chart Review: Acceptable Risk for Surgery and Patient NOT seen in Pre Admission Testing Consults Requested none ASA ASA3 Proposed Anesthesia Anesthesia Type: General Risk / Benefits Reviewed With: PT / POA / Parent / Guardian, Accepts Plan and Informed Consent Obtained History Surgery Operation Date: 05/04/22 07:00 Proposed Procedures p Left Leg Incision and Drainage Possible Wound Vac - Travis Silver, Height/Weight Height: 5 ft 10 in Weight: 92.8 kg Allergies Allergy/AdvReac Type Severity Reaction Status Date / Time No Known Allergies Allergy Unverified 05/02/22 19:45 Medications Home Medications Medication Instructions Recorded Confirmed Last Taken cephalexin 500 mg capsule 500 mg PO TID 05/02/22 05/02/22 05/02/22 09:30 glucosamine sulf dipot 2 cap PO DAILY 05/02/22 05/02/22 Unknown chlr,msm,chond 550 mg-C 30 mg-chelle 1 mg capsule (Glucosamine Chondroitin) hydrocodone 5 mg-acetaminophen 325 1 tab PO Q6H PRN Pain 05/02/22 05/02/2205/02 09:30 mg tablet ibuprofen 200 mg tablet 600 mg PO Q6H PRN Pain 05/02/22 05/02/22 Unknown sumatriptan succinate 50 mg tablet 0 mg PO .COMPLEX 05/02/22 05/02/22 Unknown Active Medications Generic Name Dose Route Start Last Admin Trade Name Freq PRN Reason Stop Dose Admin Acetaminophen 650 mg 05/02/22 21:37 05/04/22 07:44 Acetaminophen 325 Mg Tab PO 06/01/22 21:36 650 mg Q4H PRN Administration pain/fever Heparin Sodium (Porcine) 5,000 units 05/02/22 21:45 05/04/22 09:52 Heparin Sod 5,000 Unit/0.5 Ml Vial SQ 06/01/22 21:44 Not Given Q12 ANGELA Daptomycin 325 mg/ Syringe 6.5 mls @ 3.25 mls/min 05/03/22 02:00 05/04/22 02:58 IV 05/10/22 01:59 3.25 mls/min Q24H ANGELA Administration Protocol Piperacillin Sod/Tazobactam 115 mls @ 28.75 mls/hr 05/03/22 04:00 05/04/22 13:20 Sod 3.375 gm/ Dextrose IV 05/10/22 03:59 28.8 mls/hr Q8H ANGELA Administration Protocol Lactated Ringer's 1,000 mls @ 80 mls/hr 05/02/22 21:37 05/04/22 10:59 Lr IV 06/01/22 21:36 80 mls/hr .[id number] ANGELA Administration Sumatriptan Succinate 50 mg 05/02/22 22:45 05/04/22 10:08 Sumatriptan Succinate 50 Mg Tab PO 06/01/22 22:44 50 mg UD PRN Administration migraine GAO NPO Date Last Intake of Fluids: 05/03/22 Time Last Intake of Fluids: 22:00 Date Last Intake of Solids: 05/03/22 Time Last Intake of Solids: 18:00 Past Medical History Medical History Cellulitis Compartment syndrome Migraine Tibial plateau fracture, left Exercise / Class Metabolic Activity II 4-5 Yardwork/Stairs/Walk up hill Past Anesthesia History No Hx of Anesthesia Complications and No Family Hx of Anesthesia Complications History of PONV No Hx of PONV and No Hx of Motion Sickness Social History Smoking Status: Never smoker Do You Dip or Chew Tobacco: No Hx Alcohol Use: Yes Alcohol type: beer and hard liquor alcohol intake frequency: holidays/special occasions only Hx Substance Use: No substance use type: does not use Physical Exam Vital Signs Last Vital Signs Temp 37.5 C 05/04/22 14:09 Pulse 93 H 05/04/22 14:09 Resp 22 05/04/22 14:09 BP 143/101 H 05/04/22 14:09 Pulse Ox 96 05/04/22 14:09 O2 Del Method 05/04/22 14:09 ENMT Mouth: no dentition abnormality Thyromental Distance: > or= 3.5 Finger Breadths Mallampati Class: II Neck normal visual inspection Respiratory normal respiratory effort Auscultation: lungs clear to auscultation bilaterally Cardiovascular Rate/Rhythm: regular rate and regular rhythm Psychiatric Orientation: alert Testing Laboratory Results 05/04/22 08:21 05/04/22 08:21 PT 11.5 Seconds (9.0-12.0) 05/02/22 13:45 INR 1.1 (0.9-1.1) 05/02/22 13:45 APTT 35.1 Seconds (21.0-31.0) H 05/02/22 13:45 Urine Color Yellow 05/02/22 21:50 Urine Appearance Clear (Clear) 05/02/22 21:50 Urine pH 5.5 (4.5-7.5) 05/02/22 21:50 Ur Specific [place] 1.019 (1.000-1.030) 05/02/22 21:50 Urine Protein 2+ (Negative) H 05/02/22 21:50 Urine Glucose (UA) Negative (Negative) 05/02/22 21:50 Urine Ketones Negative (Negative) 05/02/22 21:50 Urine Nitrite Negative (Negative) 05/02/22 21:50 Ur Leukocyte Esterase Negative (Negative) 05/02/22 21:50 Urine WBC (Auto) 1-5 /hpf (0-5) 05/02/22 21:50 Urine RBC (Auto) 5-10 /hpf (0-4) H 05/02/22 21:50 U Hyaline Cast (Auto) 1-5 /lpf (0-5) 05/02/22 21:50 U Epithel Cells (Auto) >30 /lpf (0-5) H 05/02/22 21:50 Urine Bacteria (Auto) Negative (Negative) 05/02/22 21:50 05/02/22 14:45 Aerobic Blood Culture - Preliminary Blood No growth in Aerobic bottle after 48 hours. Anaerobic Blood Culture - Preliminary No growth in Anaerobic bottle after 48 hours. 05/02/22 14:41 Aerobic Blood Culture - Preliminary Blood No growth in Aerobic bottle after 48 hours. Anaerobic Blood Culture - Preliminary No growth in Anaerobic bottle after 48 hours. 05/02/22 19:23 Gram Stain - Final Knee,Left Wound Culture - Preliminary Group G Beta Strep
--- NOTE | 2022-05-04 16:31 | Operative Report ---
PG Post Operative Report Pre & Post Diagnosis Operation Date: 05/04/22 07:00 Pre-Op Diagnosis: Deep left leg infection with retained hardware Post-Op Diagnosis: Keep left leg infection with retained hardware I identified the patient and participated in the time-out.: Yes Procedure Operation Date: 05/04/22 07:00 Actual Procedures p Left Leg Irrigation and Drainage with removal of hardware and application of Wound Vac, and left knee aspiration (Left) - Travis Silver DO Surgeon Travis Silver DO Integration Manager Travis Gonzalez PA-C Estimated Blood Loss 5 Findings Consistent with Post-Op Diagnosis Deep infection in the left leg and exposed hardware Specimens Left leg wound cultures Left knee synovial fluid for cell count and cultures and sensitivities Description of Procedure On May 04, 2022 Vernon was brought down from his hospital room to the preoperative holding area. The operative extremity identified and signed. He was taken back the operating room and laid on the table in supine position. He was put under general anesthesia. The left leg was prepped and draped in sterile fashion. A timeout was done. The patient and the operative extremity was properly identified. There was a 3 cm x 3 cm open wound on the lateral aspect of the left leg. There was jaswinder pus easily expressed from the wound. I was able to easily stick my finger down to the hardware. Cultures were taken of the wound. Incision was made both proximally and distally in line with the previous incision. The wound was opened up a little bit more. The wound was then irrigated with pulse lavage. The right surrounding soft tissues were debrided. The lateral tibial plate was fully exposed. At this point I did not feel it was right to place a wound VAC on exposed hardware. I extended the incision a little more both proximally and distally. I dissected down to the hardware until the hardware was exposed. The hardware was then removed. The bone did not appear to be fully healed. There was still an open defect in the posterior lateral aspect of the tibia. I did not see any jaswinder pus in the screw holes. The wound was irrigated with a total of 6 L of normal saline solution by pulse lavage. Hemostasis was obtained. The extended incisions were closed with #2 nylon suture in a mattress fashion. I was still left with a 3 cm x 3 cm opening that could not be closed. A silver lined VAC sponge was placed. I was able to get good suction. He did have a 2+ effusion of his left knee. He was not complain of any significant knee pain. I aspirated his left knee and was mostly straw- colored fluid. I did send it to lab for cell count with differential and cultures. He was then placed in a soft dressing. He was then extubated and transferred to a hospital bed. He was taken to the postanesthesia care unit in stable condition. He tolerated procedure well. Travis Gonzalez PA-C, was present for the entire procedure. He was critical for patient positioning, prepping, draping, retraction exposure, wound closure and application of sterile dressing. I attest to the content of the Intraoperative Record and any orders documented therein. Any exceptions are noted below.
[2022-05-04 16:42] LABS: Appearance Synovial Fluid Hazy; Color Synovial Fluid Straw; RBC Synovial Fluid (A) 6000 /uL; Source Synovial Fluid Left Knee; WBC Synovial Fluid (A) 10932 /ul (0-200)
[2022-05-04] MEDS ORDERED: LABETALOL HCL IV 5 MG/ML 20ML IV ONE (16:54)
[2022-05-04] MEDS ORDERED: LABETALOL HCL IV 5 MG/ML 20ML IV STA (17:06)
--- NOTE | 2022-05-04 17:07 | Anesthesiology Progress Note ---
Date of Service May 04, 2022 Anesthesia Post Procedure Vital Signs Vital Signs: Temp Pulse Pulse Pulse Resp BP Pulse Ox 05/04/22 17:00 76 12 156/99 H 95 05/04/22 16:55 85 12 162/99 H 96 05/04/22 16:45 82 12 161/101 H 96 05/04/22 16:35 83 12 162/102 H 100 05/04/22 16:27 37.1 C 85 19 162/92 H 100 05/04/22 14:09 37.5 C 93 H 22 143/101 H 96 05/04/22 11:55 67 05/04/22 11:00 37.1 C 71 16 157/90 H 95 05/04/22 07:54 37.0 C 74 18 156/91 H 97 05/04/22 03:00 37.1 C 69 20 136/87 98 05/03/22 22:30 37.9 C H 79 16 148/93 H 95 05/03/22 22:56 80 O2 Del Method O2 Flow Rate 05/04/22 17:00 Room Air 05/04/22 16:55 Oxymask 2 05/04/22 16:45 Oxymask 3 05/04/22 16:35 Oxymask 6 05/04/22 16:27 Oxymask 6 05/04/22 14:09 Room Air 05/04/22 11:55 05/04/22 11:00 Room Air 05/04/22 07:54 Room Air 05/04/22 03:00 Room Air 05/03/22 22:30 Room Air 05/03/22 22:56 Pain Intensity Left Lower Leg: Pain Intensity: 3 Transfer of Care Handoff Completed per policy Notes Mental Status: alert / awake / arousable Patient Amnestic to Procedure: Yes Nausea / Vomiting: adequately controlled Pain: adequately controlled Airway Patency, RR, SpO2: stable & adequate BP & HR: stable & adequate Hydration State: stable & adequate Anesthetic Complications: no major complications apparent and Pt Satisfied with anesthetic care
[2022-05-04] MEDS: HYDROCODONE/ACETAMOPHEN 5/325MG TAB PO PRN (19:42)
--- NOTE | 2022-05-04 22:04 | Hospitalist Progress Note ---
Date of Service May 04, 2022 Assessment & Plan (1) Cellulitis: Plan: Failed outpatient Keflex. After reviewing images and clinical exam, I do not think the knee is involved, so I think it is ok to keep him here. - Follow blood cultures - Ordered abscess culture - Doppler on LLE ordered - drainage inspector consult - Dapto/Zosyn until cultures return - Orthopedics consulted -S/P debridement and irrigation. (2) Tibial plateau fracture, left: Plan: On 12/07/2021 when falling from a ladder. As above, do not believe joint is involved based on exam and imaging. - Orthopedics consult: appreciate input (3) Creatinine elevation: Plan: Patient does not have any knowledge of prior kidney issues, so presumed acute renal failure. - UA ordered - IV fluids - Bladder scans to r/o obstructive cause - Improving (4) Anemia: Plan: Microcytic, presumed to be iron deficiency from surgeries. Patient does not know of this, however. No indication of acute bleeding. - Anemia panel - Monitor - Consider IV Venofer when infection controlled. -will likely not order iron in the short term. (5) Migraine: Plan: Take sumatriptan at home. - Sumatriptan PRN (6) DVT prophylaxis: Plan: Heparin 5,000 units SQ Q12h Admission and Anticipated Discharge Date Admission Date: May 02, 2022 Subjective 54 yo male reports no new symptoms. Review of Systems Review of Systems: All systems reviewed & are unremarkable except as noted in HPI & below Physical Exam Physical Exam: Constitutional: WD/WN, vitals as above Eyes: no conjunctival abnormality ENMT: external ear and nose normal Neck: normal visual inspection Respiratory: normal respiratory effort, no respiratory distress Cardiovascular: RRR, no murmur, no edema Musculoskeletal: Extremities: + limited ROM of extremities (Left knee with minimal range of motion); + extremities abnormal to inspection Skin: no rashes, warm and dry Neurologic: moves all extremities and awake Psychiatric: Orientation: alert, oriented to person and cooperative Results & Data Results & Data ([facility]) Vital Signs (Past 12 Hours) Vital Signs Temp Pulse Pulse Pulse Resp BP Pulse Ox 05/04/22 20:11 36.8 C 105 H 20 146/83 H 95 05/04/22 18:33 36.9 C 88 18 144/89 H 97 05/04/22 17:48 36.8 C 85 18 149/95 H 98 05/04/22 17:15 76 14 149/90 H 98 05/04/22 17:05 36.5 C 79 14 144/83 H 98 05/04/22 17:00 76 12 156/99 H 95 05/04/22 16:55 85 12 162/99 H 96 05/04/22 16:45 82 12 161/101 H 96 05/04/22 16:35 83 12 162/102 H 100 05/04/22 16:27 37.1 C 85 19 162/92 H 100 05/04/22 14:09 37.5 C 93 H 22 143/101 H 96 05/04/22 11:55 67 05/04/22 11:00 37.1 C 71 16 157/90 H 95 O2 Del Method O2 Flow Rate 05/04/22 20:11 Nasal Cannula 2 05/04/22 18:33 Nasal Cannula 2 05/04/22 17:48 Nasal Cannula 2 05/04/22 17:15 Nasal Cannula 2 05/04/22 17:05 Nasal Cannula 2 05/04/22 17:00 Room Air 05/04/22 16:55 Oxymask 2 05/04/22 16:45 Oxymask 3 05/04/22 16:35 Oxymask 6 05/04/22 16:27 Oxymask 6 05/04/22 14:09 Room Air 05/04/22 11:55 05/04/22 11:00 Room Air PG Care Time/CCT Total # of Minutes Spent Total Time Spent with Patient: Total time spent is greater than 50% in coordination of care (as documented) at patient's floor/unit and/or counseling patient: Coding Level of Care Code 30439 Subseq Hosp Care Lvl 2 Diagnoses Cellulitis L03.116 Laterality: left Site of cellulitis: extremity Site of cellulitis of extremity: lower extremity Tibial plateau fracture, left S82.142A Creatinine elevation R79.89 Anemia D64.9 Anemia type: unspecified type Migraine G43.909 DVT prophylaxis Z29.9 (1) Anemia Anemia type: unspecified type Qualified Code(s): D64.9 - Anemia, unspecified (2) Cellulitis Laterality: left Site of cellulitis: extremity Site of cellulitis of extremity: lower extremity Qualified Code(s): L03.116 - Cellulitis of left lower limb
[2022-05-05] MEDS: DAPTOmycin 325 MG in SYRINGE 0 ML IV SCH (02:58)
[2022-05-05] MEDS: PIPERACILLIN/TAZOBACTAM 3.375 GM in DEXTROSE 5% 100 ML IV SCH ×3 (03:10→21:34)
--- NOTE | 2022-05-05 07:14 | Orthopedic Progress Note ---
Date of Service May 05, 2022 Assessment & Plan (1) Infected hardware in left leg: Unfortunately, Vernon had infected hardware of his left leg. During the procedure the lateral tibial plate was exposed. Because of this, I removed the lateral sided plate. I debrided and irrigated all infected appearing tissue. The healing of the fracture was questionable. A 3 cm diameter VAC sponge was then placed. Our biggest concern now is to get rid of the infection and to heal the wound. He is currently on daptomycin and Zosyn IV. Cultures were taken during the procedure and we are awaiting culture results. Initial cultures taken on May 02 grew group B strep. I also aspirated the effusion of his left knee and sent that for cell count. The aspiration had a white blood cell count of 10,000. This is not indicative of infection but may be indicative of some inflammation. At this point, he will likely require VAC treatment for several months to get that wound to heal all the way. I would like him to stay at 125 mmHg on continuous suction. With the hardware removed from his left leg, the structural healing of the fracture is a little bit questionable. At this point I do feel better if he was nonweightbearing on his left leg. I do not feel that any further urgent procedures are necessary. We should figure an appropriate antibiotic regimen and discharge him home to [place] with a VAC sponge in place and nonweightbearing instructions. He will follow-up with the orthopedist in [place] who will likely do imaging studies to determine when he can start weightbearing on his left leg again. If you have any further questions please feel free to contact me via [employer] text or my cell phone at [phone] Subjective Vernon was seen and examined at bedside this morning. Overall is doing fairly well. Is not having too much pain in the left leg. He was able to get some sleep last night. I went over the procedure with him last night and I called his and discussed everything with her as well. He had no acute events overnight.. Review of Systems All systems reviewed & are unremarkable except as noted in HPI & below. Physical Exam On physical examination of the left leg, the VAC is to continuous suction at 125 mmHg. He has active dorsiflexion plantarflexion of his left ankle but he has some pain with that. He still some swelling of the left leg.. Results & Data Results & Data Laboratory Results . Diagnostic Findings . PG Care Time/CCT Total # of Minutes Spent Total Time Spent with Patient: Total time spent is greater than 50% in coordination of care (as documented) at patient's floor/unit and/or counseling patient: Coding Level of Care Code 38945 Post Operative Follow-Up Diagnoses Infected hardware in left leg T84.7XXA
[2022-05-05] MEDS: HEPARIN SOD 5,000 UNIT/0.5 ML VIAL SQ SCH ×2 (07:35→21:41)
[2022-05-05] MEDS ORDERED: NON-FORMULARY MEDICATION (Glucos Sul 2kcl-Msm-Chond-C-Mn [Glucosamine Chondroitin] 550-30- PO SCH (09:00)
[2022-05-05] MEDS: LACTATED RINGER'S 1,000 ML IV SCH ×2 (10:26→21:38)
[2022-05-05] MEDS: ACETAMINOPHEN 325 MG TAB PO PRN (21:39)
--- NOTE | 2022-05-05 23:02 | Hospitalist Progress Note ---
Date of Service May 05, 2022 Assessment & Plan (1) Cellulitis: Plan: Failed outpatient Keflex. After reviewing images and clinical exam, I do not think the knee is involved, so I think it is ok to keep him here. - Follow blood cultures - Ordered abscess culture - Doppler on LLE ordered - nurse school consult - Dapto/Zosyn until cultures return - Orthopedics consulted -S/P debridement and irrigation. may offer antibiotics at [facility] (2) Tibial plateau fracture, left: Plan: On 12/07/2021 when falling from a ladder. As above, do not believe joint is involved based on exam and imaging. - Orthopedics consult: appreciate input (3) Creatinine elevation: Plan: Patient does not have any knowledge of prior kidney issues, so presumed acute renal failure. - UA ordered - IV fluids - Bladder scans to r/o obstructive cause - Improving (4) Anemia: Plan: Microcytic, presumed to be iron deficiency from surgeries. Patient does not know of this, however. No indication of acute bleeding. - Anemia panel - Monitor - Consider IV Venofer when infection controlled. -will likely not order iron in the short term. (5) Migraine: Plan: Take sumatriptan at home. - Sumatriptan PRN (6) DVT prophylaxis: Plan: Heparin 5,000 units SQ Q12h Admission and Anticipated Discharge Date Admission Date: May 02, 2022 Subjective 51 yo male reports no new symptoms. Review of Systems Review of Systems: All systems reviewed & are unremarkable except as noted in HPI & below Physical Exam Physical Exam: Constitutional: WD/WN, vitals as above Eyes: no conjunctival abnormality ENMT: external ear and nose normal Neck: normal visual inspection Respiratory: normal respiratory effort, no respiratory distress Cardiovascular: RRR, no murmur, no edema Musculoskeletal: Extremities: + limited ROM of extremities (Left knee with minimal range of motion); + extremities abnormal to inspection Skin: no rashes, warm and dry Neurologic: moves all extremities and awake Psychiatric: Orientation: alert, oriented to person and cooperative Results & Data Results & Data ([facility]) Vital Signs (Past 12 Hours) Vital Signs Temp Pulse Pulse Resp BP Pulse Ox O2 Del Method 05/05/22 18:24 36.9 C 78 18 143/84 H 94 Room Air 05/05/22 15:00 37.2 C 84 20 156/86 H 95 Room Air 05/05/22 15:44 86 05/05/22 11:20 36.5 C 78 18 132/84 94 Room Air PG Care Time/CCT Total # of Minutes Spent Total Time Spent with Patient: Total time spent is greater than 50% in coordination of care (as documented) at patient's floor/unit and/or counseling patient: Coding Level of Care Code 05472 Subseq Hosp Care Lvl 2 Diagnoses Cellulitis L03.116 Laterality: left Site of cellulitis: extremity Site of cellulitis of extremity: lower extremity Tibial plateau fracture, left S82.142A Creatinine elevation R79.89 Anemia D64.9 Anemia type: unspecified type Migraine G43.909 DVT prophylaxis Z29.9 (1) Cellulitis Laterality: left Site of cellulitis: extremity Site of cellulitis of extremity: lower extremity Qualified Code(s): L03.116 - Cellulitis of left lower limb (2) Anemia Anemia type: unspecified type Qualified Code(s): D64.9 - Anemia, unspecified
[2022-05-06 00:48] LABS: BUN Creatinine Ratio 19.4 (10-20); Creatinine Clr Calc Pharmacy 104.6 ml/min; Est GFR (African American) 108.2 ml/min; Est GFR (Non-African American) 93.4 ml/min; Potassium 3.6 mmol/L (3.5-5.1)
[2022-05-06] MEDS: PIPERACILLIN/TAZOBACTAM 3.375 GM in DEXTROSE 5% 100 ML IV SCH ×3 (03:36→20:59)
[2022-05-06] MEDS: DAPTOmycin 325 MG in SYRINGE 0 ML IV SCH (03:36)
[2022-05-06 06:21] LABS: Hematocrit (blood only) 26.2 % (40.1-51.0); Hemoglobin 7.9 g/dl (14.0-18.0); Mean Corpuscular Hemoglobin 21.4 pg (25.0-34.0); Mean Corpuscular Hgb Conc 30.2 g/dL (32.0-36.0); Mean Corpuscular Volume 70.8 fL (80.0-100.0); Nucleated RBC # (auto) 0.03 K/uL (0-0); Nucleated RBC % (auto) 0.3 %; Platelet Count 251 K/uL (130-400); RDW Coefficient of Variation 18.9 % (11.5-14.5); RDW Standard Deviation 48.3 fL (36.4-46.3); White Blood Count 9.94 K/ul (4.8-10.8)
[2022-05-06] MEDS: HEPARIN SOD 5,000 UNIT/0.5 ML VIAL SQ SCH ×2 (07:59→21:01)
[2022-05-06] MEDS: HYDROCODONE/ACETAMOPHEN 5/325MG TAB PO PRN (12:37)
[2022-05-06] MEDS: ACETAMINOPHEN 325 MG TAB PO PRN (18:47)
[2022-05-06] MEDS: SUMAtriptan succinate 50 MG TAB PO PRN (18:47)
[2022-05-07] MEDS: DAPTOmycin 325 MG in SYRINGE 0 ML IV SCH (04:24)
[2022-05-07] MEDS: PIPERACILLIN/TAZOBACTAM 3.375 GM in DEXTROSE 5% 100 ML IV SCH (04:25)
[2022-05-07] MEDS: ACETAMINOPHEN 325 MG TAB PO PRN (06:53)
[2022-05-07] MEDS: SUMAtriptan succinate 50 MG TAB PO PRN (07:18)
--- NOTE | 2022-05-07 07:39 | Hospitalist Progress Note ---
Date of Service May 06, 2022 Assessment & Plan (1) Cellulitis: Plan: Infected hardware in left leg: -S/P debridement and irrigation. -Patient continues to have a 3x3 cm opening that likely will require a wound vac. Patient also needs IV antibiotics, plan is for ceftriaxone as group B strep is growing on culture However, given that patient does not have insurance. Case management has been working tirelessly to obtain a plan of care that will help patient. Patient currently refuses to stay the whole treatment course in [place] as he does not live here. Second option then was to obtain any assistance for wound vac. But this was denied. For antibiotics, this appears that this can be set up as cost is not as high and patient has a family memeber who is a nurse and can assist. Dr.Corey Uribe was kind enough to agree to oversee labs and IV antibiotics back in [place]. He recommended patient to see him next Wednesday at trauma clinic (the clinic he usally sees patient). Patient should get US peripheral line in the meantime prior to discharge. Patient will need wound packing to pack opening and this should be changed every 2-3 days. (2) Tibial plateau fracture, left: Plan: On 12/07/2021 when falling from a ladder. As above, do not believe joint is involved based on exam and imaging. - Orthopedics consult: appreciate input (3) Creatinine elevation: Plan: Patient does not have any knowledge of prior kidney issues, so presumed acute renal failure. - UA ordered - IV fluids - Bladder scans to r/o obstructive cause - Improving (4) Anemia: Plan: Microcytic, presumed to be iron deficiency from surgeries. Patient does not know of this, however. No indication of acute bleeding. - Anemia panel: likely due to Anemia of chronic inflammation. - Monitor - Consider IV Venofer when infection controlled. -will likely not order iron in the short term. can be followed up as outpatient. (5) Migraine: Plan: Take sumatriptan at home. - Sumatriptan PRN (6) DVT prophylaxis: Plan: Heparin 5,000 units SQ Q12h Admission and Anticipated Discharge Date Admission Date: May 02, 2022 Subjective Late input. Patient seen on 05/06 Patient reports no new symptoms. Patient reports he will be discharged on 05/07 either AMA or with a plan. Review of Systems Review of Systems: All systems reviewed & are unremarkable except as noted in HPI & below Physical Exam Physical Exam: Constitutional: WD/WN, vitals as above Eyes: no conjunctival abnormality ENMT: external ear and nose normal Neck: normal visual inspection Respiratory: normal respiratory effort, no respiratory distress Cardiovascular: RRR, no murmur, no edema Musculoskeletal: Extremities: wound vac in place Skin: no rashes, warm and dry Neurologic: moves all extremities and awake Psychiatric: Orientation: alert, oriented to person and cooperative Results & Data Results & Data ([place]) Vital Signs (Past 12 Hours) Vital Signs Temp Pulse Pulse Resp BP Pulse Ox O2 Del Method 05/07/22 06:54 71 05/07/22 03:00 37.2 C 76 20 154/91 H 92 Room Air 05/06/22 22:15 75 05/06/22 22:00 37.2 C 70 20 162/92 H 92 Room Air 05/06/22 21:00 Room Air PG Care Time/CCT Total # of Minutes Spent Total Time Spent with Patient: Total time spent is greater than 50% in coordination of care (as documented) at patient's floor/unit and/or counseling patient: Prolonged Care Time Prolonged Care Time: Yes Total Prolonged Care Time: 65 15:00 to 16:05 Coding Level of Care Code 27137 Subseq Hosp Care Lvl 3 (25 - SIGNIFICANT, SEPARATELY IDENTIFIABLE ) Diagnoses Cellulitis L03.116 Laterality: left Site of cellulitis: extremity Site of cellulitis of extremity: lower extremity Tibial plateau fracture, left S82.142A Creatinine elevation R79.89 Anemia D64.9 Anemia type: unspecified type Migraine G43.909 DVT prophylaxis Z29.9 Additional Codes Prolonged Care Time - Prolonged Care Time: Yes ([id number]) Time Spent (min) 65 (1) Cellulitis Laterality: left Site of cellulitis: extremity Site of cellulitis of extremity: lower extremity Qualified Code(s): L03.116 - Cellulitis of left lo wer limb (2) Anemia Anemia type: unspecified type Qualified Code(s): D64.9 - Anemia, unspecified
[2022-05-07] MEDS: HEPARIN SOD 5,000 UNIT/0.5 ML VIAL SQ SCH (08:37)
[2022-05-07] MEDS ORDERED: cefTRIAXone SODIUM 2,000 MG in DEXTROSE 5% 50 ML IV SCH (10:00)
--- NOTE | 2022-05-07 10:55 | Orthopedic Progress Note ---
Date of Service May 07, 2022 Assessment & Plan (1) Infected hardware in left leg: Clinically he is doing fairly well. The cultures of his leg grew out group G beta strep. He has been switched to ceftriaxone daily and an IV has been placed. He is able to pay for these IV antibiotics [id number]. Unf ortunately the insurance would not cover the VAC sponge. He will have that removed and Aquacel dressing placed. He can return to [place] today. He is currently scheduled up to follow-up with his orthopedist in [place]. I want him to be nonweightbearing on the left leg until follow-up with the orthopedist. Orthopedic discharge instructions were placed in the discharge summary. Randy Junior was seen and examined at bedside. Unfortunately the insurance did not approve the VAC sponge. He is going to have that removed and an Aquacel dressing placed. He is scheduled to go back to [place] today. He will follow-up with the orthopedist there. He is not having too much pain in his left leg. He is currently on IV antibiotics.. Review of Systems All systems reviewed & are unremarkable except as noted in HPI & below. Physical Exam Physical examination of the left leg shows the current VAC to suction. The swelling is going down his leg. He is active dorsiflexion plantarflexion of his left ankle.. Results & Data Results & Data Laboratory Results . Diagnostic Findings . PG Care Time/CCT Total # of Minutes Spent Total Time Spent with Patient: Total time spent is greater than 50% in coordination of care (as documented) at patient's floor/unit and/or counseling patient: Coding Level of Care Code 56850 Post Operative Follow-Up Diagnoses Infected hardware in left leg T84.7XXA
--- NOTE | 2022-05-07 19:26 | Discharge Summary ---
Date of Service May 07, 2022 Admission HPI Per Admitting Provider 51yo M w/ hx of migraines who presents with left leg cellulitis. The patient fell off a ladder on 12/07/2021. He went straight the hospital, and was diagnosed with a tibial plateau fracture. His case was complicated by compartment syndrome of the wells, and he required a fasciotomy. Overall, he required 4 surgeries to repair the leg and had his final surgery to stabilize and repair the bone on 12/29/2021. Unfortunately, at some point, he scraped at some scabbing on the lateral side of the leg, and he opened up a blister. He has been using gauze and bandages on the leg to help it heal. He was in [place] when he noted some redness and swelling on the leg. There, he had an I&D performed at a hospital, and they prescribed him Keflex. He has been taking that as prescribed. However, today, one of his coworkers noted that he had blood staining through his pant. Someone in the stadium packed the wound, and he was sent here for further care. He reports he has not had any systemic symptoms overall. He notes his leg is swollen, but no pain. Has had very limited ROM with the left knee since his surgeries, but this has not changed. Principal Diagnosis Septic joint, infected hardware Discharge Exam In general he is awake and alert pleasant no distress. HEENT normocephalic atraumatic mucous membranes moist. Breathing unlabored no accessory muscle use good effort. Skin shows no rashes no pallor or icterus. Whenever I see him his left leg is dressed with a wound VAC in place, no tracking erythema. Neuro shows no focal deficits. Discharge Data Allergies Allergy/AdvReac Type Severity Reaction Status Date / Time No Known Allergies Allergy Unverified 05/02/22 19:45 Consultations 05/02/22 18:08 ED Decision to Admit Stat 05/02/22 21:37 Consult Orthopedic Surgery Routine 05/05/22 09:26 Consult Infectious Diseases Routine Procedures Performed Operation Date: 05/04/22 07:00 Actual Procedures p Left Leg Incision, Irrigation and Drainage with Application of Wound Vac(Left) - Travis Silver, Ordered Studies 05/02/22 15:41 CT tib/fib LT wo con Stat 05/02/22 21:37 US venous doppler LE LT Routine 05/06/22 16:50 US vasc access [US guide vascular access] Routine Hospital Course (1) Cellulitis: Infected hardware in left leg: -S/P debridement and irrigation. -Patient continues to have a 3x3 cm openingtreatment initially with a wound VAC, due to lack of insurance, despite case management putting in significant effort, there is no ability to get him a wound VAC currently. We will do dressing changes, and have him follow-up with a wound clinic [place] that they can continue dressing changes, and possibly may have another means of getting him a wound VAC in his home community. Patient also needs IV antibiotics, plan is for ceftriaxone as group B strep is growing on culturedose given today, set up for home. Patient currently refuses to stay the whole treatment course in [place] as he does not live here, hence our inability to continue treatment here/wound VAC inpatient/etc. Dr.Corey Uribe was kind enough to agree to oversee labs and IV antibiotics back in [place]. He recommended patient to see him next Wednesday at trauma clinic (the clinic he usally sees patient). Discussed red flags of what to watch for, discussed that if any of his care appears to be following through the cracks, if the wound looks worse, if he is not able to get the antibiotics, etc.that he should proceed immediately to the ER, given the risk to permanent sequelae with this infection. To follow-up with wound clinic back home [facility]. (2) Tibial plateau fracture, left: On 12/07/2021 when falling from a ladder. As above, do not believe joint is involved based on exam and imaging. - Orthopedics consult: appreciate input (3) Creatinine elevation: improved to 0.93 (4) Anemia: Microcytic, presumed to be iron deficiency from surgeries. Patient does not know of this, however. No indication of acute bleeding. - Anemia panel: likely due to Anemia of chronic inflammation. - outpt f/u of Hgb (5) Migraine: Take sumatriptan at home. - Sumatriptan PRN (6) DVT prophylaxis: Heparin 5,000 units SQ Q12h utilized during his stay Total Time Total Time Spent Total Time Spent (In Minutes): <30 Discharge Plan Discharge Items Patient Disposition: Home - Home Health Services Reason For Visit: LEFT LEG INFECTION Discharge Diagnosis: knee infection Condition on Discharge: Fair Activity: As commented below Activity Comment: orthopedic surgery asks that you not bear weight on the left leg Non-emergency contact: Primary Care Provider and Surgeon Call non-emergency contact if: you have any medication questions, your symptoms worsen and you have a fever Follow-up/Referrals: PCP,NO [Primary Care Provider] - Diet: Regular Addtl Attending Provider Instructions: the antibiotic (rocephin) should be once every 24hrs. you've had your dose today around 10am - so next dose should be tomorrow morning on your way home, call wound care centers/wound clinics that are near where you live. in a situation like yours, the orthopedic surgeon is the "general" but a wound clinic is usually the "foot soldier" that does most of the day-to-day management. also, while we can't make it a promise, having a wound clinic in your home state working on a wound vac would be worthwhile as they might have success we were unable to have. ideally you'd be seen there tomorrow. they should help with the dressing changes. when they have questions - have them call Dr Silver at the below number until your orthopedic surgeon at home has seen you for now until/unless the wound vac has been set up, they will be doing dressing changes every ~2-3 days (based on the dressings, the wound, and your progress) -- once Dr Silver or Tamela from the wound clinic have seen you today - if they leave different recommendations, please follow those instead in a situation like yours, there's a lot of potential for things to go wrong. if the antibiotics aren't set up tomorrow, if you can't get into a wound clinic guru, if the wound looks worse/there's redness at the edges or pus in the wound itself; if pain worsens, if you have a fever --> all of those would be situations that would necessitate going to the ER that day. Addtl Pattern Maker Provider Instructions: ORTHOPEDIC INSTRUCTIONS Activity Recommendations: Nonweightbearing on left leg Medications: Take antibiotics as instructed Follow-Up Visit: Follow-up with your orthopedic surgeon in [place] upon return. In the hospital you were treated by Dr. Travis Silver with [facility] orthope dics. If you have any questions call Dr. Silver at Pending Studies at Discharge: No Stand-Alone Forms: [facility] Adaptive TCR, Smoking Cessation Medications and DC Order Prescriptions: New ceftriaxone 2 gram recon soln 2 g IV DAILY Qty: 1 0RF Continued hydrocodone-acetaminophen 5-325 mg Tablet 1 tab PO Q6H PRN (Reason: Pain) sumatriptan succinate 50 mg Tablet 0 mg PO .COMPLEX Rx Instructions: take 1 tab at onset of headache; if no relief may repeat 1 tab after at least 2 hrs; max = 4 tabs/24 hr. Unsure strength. ibuprofen 200 mg Tablet 600 mg PO Q6H PRN (Reason: Pain) Glucosamine Chondroitin 550-30-1 mg Capsule 2 cap PO DAILY Rx Instructions: unknown strenth Discontinued cephalexin [Keflex] 500 mg Capsule 500 mg PO TID Discharge Orders: Discharge Order (Routine); Ordered 05/07/22 Ordered By: Coleman Bess Admission Data Admit Date/Time: 05/02/22 18:55 Attending Provider: Coleman Bess Admit Provider: Yuri Nj Primary Care Provider: PCP,NO Other Providers: Yuri Nj ; Travis Silver ; Chapin Law ; Julian Olguin ; Leonid Paul I. ; Rene Clarke II ; Jeri Love ; Matias Hudson ; Gaston Reece Other Interventions: Discharge Summary Assessment (RN) Last Done: 05/07/22 10:20 Coding Level of Care Code D/C DAY MANAGEMENT <30 MINS Diagnoses Cellulitis L03.116 Laterality: left Site of cellulitis: extremity Site of cellulitis of extremity: lower extremity Tibial plateau fracture, left S82.142A Creatinine elevation R79.89 Anemia D64.9 Anemia type: unspecified type Migraine G43.909 DVT prophylaxis Z29.9
== END 2022-05-07 11:58 | disposition home or self-care (01) | DRG 496 ==
LOC: ED 13:21 → 2W 18:55 → SUATTDRO 18:55 → 2W 21:16